=== PATIENT | male | born 1980 | race Caucasian/White ===

== ENCOUNTER 2017-06-28 19:59 | Emergency (ER) | payer SELFPAY ==
[~2017-06-28] VITALS: Ht 182.9 cm; Wt 84.0 kg
[2017-06-28 23:14] LABS: BASOPHILS % 0.7 % (0.0-2.0); HEMATOCRIT. 41.6 % (42.0-52.0); HEMOGLOBIN. 14.8 g/dL (14.0-18.0); LYMPHOCYTES % 25.3 % (20.0-50.0); MEAN CORPUSCULAR HEMOGLOBIN 29.1 pg (28.0-32.0); MEAN PLATELET VOLUME 9.4 fl (7.4-10.4); MONOCYTES % 7.6 % (2.0-8.0); NEUTROPHILS % 65.4 % (40.0-76.0); PLATELET 269 x1000/uL (130-400); RED BLOOD CELL COUNT 5.07 mill/uL (4.7-6.1); RED CELL DISTRIBUTION WIDTH 12.8 % (11.6-14.6)
[2017-06-28 23:18] LABS: CHLORIDE 106 mEq/L (98-107)
[2017-06-28 23:22] LABS: ETHANOL BLOOD < 10 mg/dL
[2017-06-29 09:58] LABS: CLARITY URINE CLEAR (CLEAR); PH URINE 5.5 (4.5-8.0); PROTEIN URINE NEGATIVE (NEGATIVE); SPECIFIC GRAVITY URINE 1.037 (1.005-1.030)
[2017-06-29 09:59] LABS: COLOR URINE DARK YELLOW (YELLOW); KETONES URINE 2+ (NEGATIVE); LEUKOCYTE ESTERASE URINE NEGATIVE (NEGATIVE); NITRITE URINE NEGATIVE (NEGATIVE); OCCULT BLOOD URINE NEGATIVE (NEGATIVE)
[2017-06-29 13:14] LABS: METHADONE URINE SCREEN NEGATIVE (NEGATIVE)
[2017-06-29 13:15] LABS: *AMPHETAMINES SCREEN URINE PRESUMTIVE POSITIVE (NEGATIVE); *BARBITURATES SCREEN URINE NEGATIVE (NEGATIVE); *BENZODIAZEPINES SCREEN URINE NEGATIVE (NEGATIVE); *COCAINE SCREEN URINE NEGATIVE (NEGATIVE); CANNABINOID URINE SCREEN NEGATIVE (NEGATIVE); OPIATES URINE SCREEN NEGATIVE (NEGATIVE); PHENCYCLIDINE URINE SCREEN NEGATIVE (NEGATIVE)
[2017-06-29 15:44] VITALS: BP 102/69
== END 2017-06-29 15:45 | disposition home or self-care (01) ==
LOC: ER 20:08
DX: G93.40 Encephalopathy, unspecified (principal); F15.959 Other stimulant use, unspecified with stimulant-induced psychotic disorder, unspecified
CPT/HCPCS: 36415; 80053; 80305; 80307; 80329; 81003; 85025; 93005; 99285; G0482; Z7610

== ENCOUNTER 2017-10-22 18:43 | Emergency (ER) | payer SELFPAY ==
[~2017-10-22] VITALS: Ht 172.7 cm; Wt 75.0 kg
[2017-10-22 18:45] VITALS: BP 120/70
== END 2017-10-22 19:00 | disposition left against medical advice (07) ==
LOC: ER 18:46
DX: F15.129 Other stimulant abuse with intoxication, unspecified (principal); F10.10 Alcohol abuse, uncomplicated; R00.0 Tachycardia, unspecified; Y90.9 Presence of alcohol in blood, level not specified
CPT/HCPCS: 99283

== ENCOUNTER 2024-08-24 03:57 | Emergency (ER) | payer MEDICAID ==
[~2024-08-24] VITALS: Ht 170.2 cm; Wt 78.0 kg
[2024-08-24 04:09] VITALS: O2SAT 98
[2024-08-24] MEDS: HALOPERIDOL LACTATE 5MG/ML VIAL IM STA (05:15)
[2024-08-24] MEDS: DIPHENHYDRAMINE 50MG/ML VIAL IM STA (05:15)
[2024-08-24] MEDS: LORAZEPAM 2MG/ML UD SYRINGE IM NR (05:15)
[2024-08-24 05:43] LABS: BASOPHILS % 0.4 % (0.0-2.0); EOSINOPHILS % 0.1 % (0.0-5.0); HEMATOCRIT. 41.5 % (42.0-52.0); HEMOGLOBIN. 13.7 g/dL (14.0-18.0); LYMPHOCYTES % 14.9 % (20.0-50.0); MEAN PLATELET VOLUME 9.3 fl (7.4-10.4); MONOCYTES % 5.6 % (2.0-8.0); NEUTROPHILS % 79.0 % (40.0-76.0); PLATELET 311 x1000/uL (130-400); RED BLOOD CELL COUNT 4.77 mill/uL (4.7-6.1); RED CELL DISTRIBUTION WIDTH 13.2 % (11.6-14.6)
[2024-08-24 06:02] LABS: CREATININE 1.4 mg/dL (0.6-1.3)
[2024-08-24 06:03] LABS: ETHANOL BLOOD < 10 mg/dL (<10); UREA NITROGEN BLOOD 43 mg/dL (9-23)
[2024-08-24 06:04] LABS: ASPARTATE AMINOTRANSFERASE 46 IU/L (<34)
[2024-08-24 06:05] LABS: BILIRUBIN DIRECT 0.4 mg/dL (<=3.0); BILIRUBIN TOTAL 1.2 mg/dL (0.1-1.0); PROTEIN TOTAL 7.6 g/dL (6.0-8.3)
[2024-08-24 23:45] LABS: *AMPHETAMINES SCREEN URINE PRESUMPTIVE POSITIVE (NEGATIVE); *BARBITURATES SCREEN URINE NEGATIVE (NEGATIVE); *BENZODIAZEPINES SCREEN URINE NEGATIVE (NEGATIVE); *COCAINE SCREEN URINE NEGATIVE (NEGATIVE); CANNABINOID URINE SCREEN NEGATIVE (NEGATIVE); ECSTASY MDMA SCREEN URINE CONF.TEST INDICATED (NEGATIVE); METHADONE URINE SCREEN NEGATIVE (NEGATIVE); OPIATES URINE SCREEN NEGATIVE (NEGATIVE); PHENCYCLIDINE URINE SCREEN NEGATIVE (NEGATIVE)
[2024-08-25 00:25] LABS: CLARITY URINE CLEAR (CLEAR); COLOR URINE DARK YELLOW (YELLOW)
[2024-08-25 00:26] LABS: GLUCOSE URINE NEGATIVE (NEGATIVE); KETONES URINE NEGATIVE (NEGATIVE); LEUKOCYTE ESTERASE URINE NEGATIVE (NEGATIVE); NITRITE URINE NEGATIVE (NEGATIVE); OCCULT BLOOD URINE NEGATIVE (NEGATIVE); PH URINE 5.5 (4.5-8.0); PROTEIN URINE NEGATIVE (NEGATIVE); SPECIFIC GRAVITY URINE 1.027 (1.005-1.030); UROBILINOGEN URINE 1.0 E.U./dL (0.2-1.0)
[2024-08-26] MEDS: OLANZAPINE 5MG TABLET PO SCH (10:33)
[2024-08-26 16:49] VITALS: BP 91/57; PULSE 64; RESP 17; TEMP 36.2; O2SAT 99
[2024-08-26 18:00] VITALS: BP 91/51; PULSE 51; RESP 16; TEMP 35.8; O2SAT 100
[2024-08-27 10:00] VITALS: BP 101/65; PULSE 62; RESP 16; TEMP 37; O2SAT 100
== END 2024-08-27 12:15 | disposition home or self-care (01) ==
LOC: ER 04:22
DX: F29 Unspecified psychosis not due to a substance or known physiological condition (principal); Z20.822 Contact with and (suspected) exposure to COVID-19; Z79.899 Other long term (current) drug therapy
CPT/HCPCS: 80076; 80305; 80048; 81003; 80307; 80329; 80320; 82962; 85025; 36415; 96372; 99285; 87426; J1200; J1630; J2060; Z7610 ×3; A4606; G0480